=== PATIENT | female | born 1995 | race Caucasian/White ===

== ENCOUNTER 2019-08-23 13:00 | Inpatient (IN) | payer OTHER ==
[~2019-08-23] VITALS: Ht 164 cm; Wt 63.5 kg
[2019-08-23 13:26] VITALS: BP 123/78
[2019-08-23] MEDS ORDERED: PREN-134 PO (13:27)
[2019-08-23] MEDS ORDERED: OXYTOCIN 30 UNITS/LACT RINGERS 500 ML IV ONE (16:15)
[2019-08-23] MEDS ORDERED: OXYTOCIN 30 UNITS/LACT RINGERS 500 ML IV PRN (16:15)
[2019-08-23] MEDS ORDERED: CITRIC ACID/SODIUM CITRATE 30 ML SOLUTION UDCUP PO PRN (16:15)
[2019-08-23] MEDS ORDERED: METOCLOPRAMIDE HCL 5 MG/ML 2 ML VIAL IVP PRN (16:15)
[2019-08-23] MEDS ORDERED: METHYLERGONOVINE MALEATE 0.2 MG/ML VIAL IM PRN (16:15)
[2019-08-23] MEDS ORDERED: RINGERS SOLUTION,LACTATED 1,000 ML IV PRN (16:15)
[2019-08-23] MEDS ORDERED: LIDOCAINE/PF 1% 30 ML VIAL INJ PRN (16:15)
[2019-08-23] MEDS ORDERED: FERR134T2 PO (16:36)
[2019-08-23 16:42] VITALS: BP 119/73
[2019-08-23] MEDS: RINGERS SOLUTION,LACTATED 1,000 ML IV SCH ×2 (16:48→18:36)
[2019-08-23 17:41] LABS: BASOPHILS % (AUTO) 0.1 % (0.0-2.0); EOSINOPHILS % (AUTO) 0.1 % (1.0-6.0); HEMATOCRIT 36.8 % (36-46); HEMOGLOBIN 12.9 g/dL (12.0-16.0); LYMPHOCYTES # (AUTO) 1.1 K/uL (1.0-4.8); LYMPHOCYTES % (AUTO) 11.3 % (22.0-44.0); MEAN CORPUSCULAR HEMOGLOBIN 31.1 pg (26.0-34.0); MEAN CORPUSCULAR HGB CONC 34.9 G/dL (31.0-37.0); MEAN CORPUSCULAR VOLUME 89 fL (80-100); MONOCYTES # (AUTO) 0.5 K/uL (0.1-1.0); MONOCYTES % (AUTO) 5.2 % (2.0-9.0); NEUTROPHILS # (AUTO) 8.3 K/uL (1.8-7.7); NEUTROPHILS % (AUTO) 83.3 % (40.0-70.0); PLATELET COUNT (AUTO)-OB 228 K/uL (150-450); RED BLOOD CELL COUNT(AUTO) 4.13 MIL/uL (4.00-5.20); RED CELL DISTRIBUTION WIDTH 13.8 % (11.5-14.5)
[2019-08-23] MEDS: FentaNYL CITRATE-PF 100 MCG/2 ML VIAL IVP PRN ×2 (19:18→19:31)
[2019-08-23] MEDS ORDERED: OXYGEN THERAPY IH SCH (20:00)
[2019-08-23] MEDS ORDERED: ROPIVACAINE HCL/PF 0.2% 100 ML ED ONE (21:44)
[2019-08-23] MEDS ORDERED: DiphenhydrAMINE HCL 50 MG/ML VIAL IVP PRN (22:15)
[2019-08-23] MEDS ORDERED: ROPIVACAINE HCL/PF 0.2% 100 ML ED PRN (22:15)
[2019-08-23] MEDS ORDERED: ONDANSETRON HCL 4 MG/2 ML VIAL IVP PRN (22:15)
[2019-08-24] MEDS: RINGERS SOLUTION,LACTATED 1,000 ML IV SCH ×2 (01:39→07:14)
[2019-08-24] MEDS ORDERED: AMPICILLIN SODIUM 2 GM/NS 100 ML IV SCH (03:15)
[2019-08-24] MEDS ORDERED: GENTAMICIN 120 MG/NACL ISO-OSM 100 ML IV ONE (03:15)
[2019-08-24] MEDS ORDERED: AMPICILLIN SODIUM 2 GM/NS 100 ML IV ONE (03:28)
[2019-08-24] MEDS ORDERED: MIDAZOLAM HCL 2 MG/2 ML VIAL ONE (10:18)
[2019-08-24] MEDS ORDERED: MORPHINE SULFATE/PF 1 MG/ML 10 ML AMP ONE (10:18)
[2019-08-24] MEDS ORDERED: LIDOCAINE/PF 2% 5 ML VIAL ONE (10:19)
[2019-08-24] MEDS ORDERED: METHYLERGONOVINE MALEATE 0.2 MG/ML VIAL ONE (10:46)
[2019-08-24] MEDS ORDERED: ACETAMINOPHEN 1000 MG/ISO-OSM 100 ML IV ONE ×2 (11:15→13:33)
[2019-08-24] MEDS ORDERED: NALOXONE HCL 0.4 MG/ML VIAL IVP PRN (11:15)
[2019-08-24] MEDS ORDERED: OxyCODONE HCL/ACETAMINOPHEN 5-325 MG TABLET PO PRN ×3 (11:15→11:45)
[2019-08-24] MEDS ORDERED: FentaNYL CITRATE-PF 100 MCG/2 ML VIAL IVP PRN (11:15)
[2019-08-24] MEDS ORDERED: ONDANSETRON HCL 4 MG/2 ML VIAL IVP PRN (11:15)
[2019-08-24] MEDS ORDERED: DiphenhydrAMINE HCL 50 MG/ML VIAL IVP PRN (11:15)
[2019-08-24] MEDS ORDERED: FentaNYL CITRATE-PF 100 MCG/2 ML VIAL ONE (11:17)
[2019-08-24] MEDS ORDERED: GUM MASTIC/STORAX/MSAL/ALCOHOL LIQUID 0.67 ML VIAL TP ONE (11:28)
[2019-08-24] MEDS ORDERED: DEXTROSE 5%-0.45% SODIUM CHL 1,000 ML IV SCH (11:38)
[2019-08-24] MEDS ORDERED: GLYCERIN/WITCH HAZEL LEAF 40 PADS JAR TP PRN (11:45)
[2019-08-24] MEDS ORDERED: KETOROLAC TROMETHAMINE 30 MG/ML VIAL ONE (12:20)
[2019-08-24] MEDS: KETOROLAC TROMETHAMINE 30 MG/ML VIAL IVP SCH ×2 (12:26→19:39)
[2019-08-24] MEDS ORDERED: LABETALOL HCL 5 MG/ML 20 ML VIAL IVP PRN (17:45)
[2019-08-24 18:12] LABS: HEMATOCRIT 29.3 % (36-46); HEMOGLOBIN 10.3 g/dL (12.0-16.0); MEAN CORPUSCULAR HEMOGLOBIN 31.3 pg (26.0-34.0); MEAN CORPUSCULAR VOLUME 89 fL (80-100); PLATELET COUNT (AUTO)-OB 200 K/uL (150-450); RED BLOOD CELL COUNT(AUTO) 3.28 MIL/uL (4.00-5.20); RED CELL DISTRIBUTION WIDTH 13.7 % (11.5-14.5)
[2019-08-24] MEDS: OXYTOCIN 20 UNITS/LACT RINGERS 1,000 ML IV SCH (18:35)
[2019-08-24 18:56] LABS: BAND NEUTROPHILS % (MANUAL) 14 % (0-5); LYMPHOCYTES % (MANUAL) 6 % (22-44); MONOCYTES % (MANUAL) 4 % (2-9); PLATELET MORPHOLOGY COMMENT LARGE PLTS PRESENT; SEGMENTED NEUTROPHILS % 76 % (40-70)
[2019-08-24] MEDS ORDERED: OXYGEN THERAPY IH SCH ×2 (20:00)
[2019-08-25] MEDS: KETOROLAC TROMETHAMINE 30 MG/ML VIAL IVP SCH ×3 (02:07→14:21)
[2019-08-25] MEDS: OXYTOCIN 20 UNITS/LACT RINGERS 1,000 ML IV SCH (02:12)
[2019-08-25] MEDS ORDERED: KETOROLAC TROMETHAMINE 60 MG/2 ML VIAL IM ONE (05:30)
[2019-08-25] MEDS ORDERED: 0.9% SODIUM CHLORIDE 10 ML VIAL IVP ONE (05:30)
[2019-08-25] MEDS ORDERED: METOCLOPRAMIDE HCL 5 MG/ML 2 ML VIAL IVP ONE (05:30)
[2019-08-25] MEDS ORDERED: DEXAMETHASONE SOD PHOS 4 MG/ML VIAL IVP ONE (05:30)
[2019-08-25] MEDS ORDERED: ONDANSETRON HCL 4 MG/2 ML VIAL IVP ONE (05:30)
[2019-08-25] MEDS ORDERED: OXYTOCIN 10 UNITS/ML VIAL IM ONE (05:30)
[2019-08-25] MEDS ORDERED: LIDOCAINE/PF 2% 5 ML VIAL IM ONE (05:30)
[2019-08-25] MEDS ORDERED: DEXTROSE 5%-0.45% SODIUM CHL 1,000 ML IV ONE (07:36)
[2019-08-25] MEDS: MAGNESIUM HYDROXIDE SUSPENSION 30 ML UDCUP PO SCH ×2 (09:36→20:54)
[2019-08-25] MEDS ORDERED: MEASLES/MUMPS/RUBELLA VACCINE, LIVE 0.5 ML/VIAL SQ ONE (11:15)
[2019-08-25] MEDS: IBUPROFEN 600 MG TABLET PO PRN (20:55)
[2019-08-26] MEDS: MAGNESIUM HYDROXIDE SUSPENSION 30 ML UDCUP PO SCH (09:47)
[2019-08-26] MEDS ORDERED: IBUP-2071 PO (14:03)
[2019-08-26] MEDS ORDERED: PERCT PO (14:04)
[2019-08-26] MEDS ORDERED: LANOLIN 7 GM OINTMENT TP PRN (14:45)
[2019-08-26] MEDS: IBUPROFEN 600 MG TABLET PO PRN (14:57)
== END 2019-08-26 16:00 | disposition home or self-care (01) | DRG 788 ==
LOC: 4S 13:00 → OBSVTOIN 16:00
PROVIDERS: ADMIT Obstetrics & Gynecology; ATTEND Obstetrics & Gynecology
PROC: 10D00Z1 Extraction of Products of Conception, Low, Open Approach (ICD-10-PCS; principal; 2019-08-24)
DX: O69.81X0 Labor and delivery complicated by cord around neck, without compression, not applicable or unspecified (principal); Z3A.40 40 weeks gestation of pregnancy; Z37.0 Single live birth; O62.2 Other uterine inertia
CPT/HCPCS: 85461; 86850; 86870; 86900; 86901; 90707; J0131; J0290; J0690; J1100; J1580; J1885; J2210; J2250; J2405; J2590; J2765; J2795; J3010; J3490; J7120